=== PATIENT | female | born 1965 | race Caucasian/White ===

== ENCOUNTER 2017-12-10 18:00 | Emergency (ER) | payer BC ==
[~2017-12-10] VITALS: Ht 172.7 cm; Wt 65.8 kg
[2017-12-10 18:03] VITALS: Ht 172.7 cm; Wt 65.8 kg
[2017-12-10 18:38] VITALS: BP 143/88
== END 2017-12-10 18:38 | disposition home or self-care (01) ==
LOC: ED 18:00
DX: S01.81XA Laceration without foreign body of other part of head, initial encounter (principal); Z88.0 Allergy status to penicillin; W22.8XXA Striking against or struck by other objects, initial encounter; Y93.89 Activity, other specified; Y92.89 Other specified places as the place of occurrence of the external cause; Y99.8 Other external cause status
CPT/HCPCS: 90715; J2001